=== PATIENT | female | born 1965 | race Two or more races ===

== ENCOUNTER 2016-12-19 05:47 | Inpatient (IN) | payer OTHER ==
[2016-12-18 10:25] VITALS: BMI 22.2
[~2016-12-19] VITALS: Ht 157.5 cm; Wt 52.4 kg
[2016-12-19] VITALS (13 sets, daily range): BP systolic 95–123; BP diastolic 46–62; PULSE 66–106; RESP 12–24; Ht 157.5 cm; Wt 52.4 kg
[2016-12-19] MEDS ORDERED: VASOPRESSIN 20 UNITS INJ ONE (06:58)
[2016-12-19] MEDS ORDERED: EPHEDrine SULFATE 50 MG/5 ML SYG ONE (07:00)
[2016-12-19] MEDS ORDERED: LIDOCAINE 2% (SDV) 5 ML INJ ONE (07:00)
[2016-12-19] MEDS ORDERED: ALBUMIN HUMAN 5% 500ML INJ ONE (07:00)
[2016-12-19] MEDS ORDERED: metroNIDAZOLE 500 MG/100 ML NS IVPB ONE (07:00)
[2016-12-19] MEDS ORDERED: DEXAMETHASONE 4 MG/ML 1 ML INJ ONE (07:00)
[2016-12-19] MEDS ORDERED: CEFAZOLIN 1 GM INJ ONE (07:00)
[2016-12-19] MEDS ORDERED: ONDANSETRON 4 MG INJ ONE (07:00)
[2016-12-19] MEDS ORDERED: ALBUMIN HUMAN 25% 100 ML INJ ONE (07:00)
[2016-12-19] MEDS ORDERED: BUPIVACAINE 0.5%/EPI (SDV) 10 ML INJ ONE (07:02)
[2016-12-19] MEDS ORDERED: LEVO25TA53 PO (07:21)
[2016-12-19] MEDS ORDERED: GEMF600T60 PO (07:21)
[2016-12-19] MEDS ORDERED: LEVOTHYROXINE 25 MCG TAB PO ONE (07:30)
[2016-12-19] MEDS ORDERED: MIDAZOLAM 1 MG/ML 2 ML INJ ONE (07:38)
[2016-12-19] MEDS ORDERED: PROPOFOL 20 ML ONE (07:38)
[2016-12-19] MEDS ORDERED: FENTAnyl 50 MCG/ML VIAL ONE ×2 (07:39→09:24)
[2016-12-19] MEDS ORDERED: morphine SULFATE/PF (10 MG/10 ML) INJ ONE (08:27)
[2016-12-19] MEDS ORDERED: ROCURONIUM 50 MG INJ ONE (08:27)
[2016-12-19] MEDS ORDERED: SUCCINYLCHOLINE CHLORIDE 100 MG/5 ML SYG IV ONE (08:27)
[2016-12-19] MEDS ORDERED: PHENYLephrine (100 MCG/ML) 5ML SYG ONE (08:28)
[2016-12-19] MEDS ORDERED: GLYCOPYRROLATE 0.4 MG INJ ONE (08:33)
[2016-12-19] MEDS ORDERED: NEOSTIGMINE 3 MG/3 ML SYRINGE ONE (08:33)
[2016-12-19] MEDS ORDERED: THROMBIN 5000 UNIT VIAL ONE (09:28)
[2016-12-19] MEDS ORDERED: ROPIVACAINE 0.5 % 30 ML VIAL ONE (09:49)
[2016-12-19] MEDS ORDERED: KETOROLAC 30 MG INJ IV PRN (10:00)
[2016-12-19] MEDS ORDERED: ACETAMINOPHEN 325 MG TAB PO PRN (10:00)
[2016-12-19] MEDS ORDERED: IBUPROFEN 600 MG TAB PO PRN (10:00)
[2016-12-19] MEDS ORDERED: OXYCODONE/ACETAMINOPHEN (5/325) TAB PO PRN ×2 (10:00)
[2016-12-19] MEDS: LACTATED RINGER'S 1,000 ML IV SCH ×2 (10:29→19:48)
[2016-12-19] MEDS ORDERED: METOCLOPRAMIDE 10 MG INJ IV PRN (10:30)
[2016-12-19] MEDS ORDERED: HYDROmorphONE (0.2 MG/ML) 10ML SYG IV PRN (10:30)
[2016-12-19] MEDS ORDERED: ONDANSETRON 4 MG INJ IV PRN (10:30)
--- NOTE | 2016-12-19 10:38 | PREOPHP ---
DATE OF ADMISSION: 12/19/2016 CHIEF COMPLAINT: The patient feels something coming from the vagina. HISTORY OF PRESENT ILLNESS: This is a 51-year-old female, 3, para 3 with the chief complaint of something protruding through the vagina that she can feel and actually pumping. She had been able to reduce but every time she walks now it will come out and feels and sees the uterus. Uterine prolapse from the cystocele was evident on examination. Surgical correction was discussed as well as the use of a pessary. The patient opted for final surgical correction of the problem. She denies any urinary incontinence. A total vaginal hysterectomy with anterior posterior repair was discussed with the patient in detail. The alternatives, the benefits, risks and possible complications of this procedure were described in detail. A shared decision making process was done in the office at great length. She was allowed to ask questions and all her questions were answered to her satisfaction. More common complications like hemorrhage, infection and pelvic floor injury were discussed and understood. The patient signed appropriate surgical informed consent. PAST MEDICAL HISTORY: The patient denies any medical problems including diabetes, cardiovascular disease, renal disease, liver disease, thyroid disease or neurological problems. PAST SURGICAL HISTORY: She has had cholecystectomy and bilateral tubal ligation in the past. ALLERGIES: NO KNOWN ALLERGIES. MEDICATIONS: She does not take any medications on a regular basis. FAMILY HISTORY: Noncontributory. REVIEW OF SYSTEMS: A 12-point review of systems is noncontributory. PHYSICAL EXAMINATION: GENERAL: Well-developed and nourished, in no distress. Alert and oriented x3. VITAL SIGNS: Height is 5 feet 2 inches and weight of 120 pounds with BMI of 22. Temperature 98, blood pressure 118/70, respirations of 16 per minute. Pulse is 72 per minute and regular. HEENT: Within normal limits. The pupils are ZORA. NECK: Supple. The thyroid is not palpable. There is no lymphadenopathy, depression, no masses, lumps. Neck is normal. LUNGS: Clear to percussion and auscultation. CARDIAC: The heart is normal sinus rhythm without murmur. ABDOMEN: Soft. There is no hepatosplenomegaly or hernia. PELVIC: Normal external genitalia. There is a cervical uterine prolapse and cystocele grade 3. There is also a small rectocele present. There may be an enterocele also. Bimanual exam: Uterus small, mobile. There are no adnexal masses. EXTREMITIES: Within normal limits. NEUROLOGIC: Normal. IMPRESSION: 1. Pelvic organ prolapse. 2. Cystocele grade 3. 3. Uterine prolapse. 4. Rectocele. 5. Possible enterocele. PLAN: The patient is to be admitted for a total vaginal hysterectomy, anterior and posterior repair under general anesthesia. Dictated By: Newton Bryant MD /josiah/aden /Document#: [id number] CC: MD Nargis;*EndCC* MTDD
[2016-12-19] MEDS: ONDANSETRON 4 MG INJ IV PRN ×2 (13:15→19:49)
[2016-12-19] MEDS: CEFAZOLIN 2 GM/50 ML (PMX) 50 ML IVPB SCH ×2 (14:24→22:11)
[2016-12-20 02:50] VITALS: BP_SYST 111; BP_SYST 93; BP_DIAS 45; BP_DIAS 63; RESP 17; RESP 18
[2016-12-20 05:36] LABS: ADD SCAN DIFF NO
[2016-12-20 05:46] LABS: BASOPHILS % 0.2 % (0.0-2.0); HEMATOCRIT 30.1 % (37.0-47.0); HEMOGLOBIN 9.8 g/dl (12.0-16.0); LYMPHOCYTES % 8.6 % (15.0-51.0); MEAN CORPUSCULAR HEMOGLOBIN 28.9 pg (29.0-33.0); MEAN CORPUSCULAR HGB CONC 32.6 g/dl (32.0-37.0); MEAN CORPUSCULAR VOLUME 88.8 fl (82.0-101.0); MEAN PLATELET VOLUME 9.6 fl (7.4-10.4); MONOCYTE # 0.7 10^3/ul (0.3-0.9); MONOCYTES % 5.9 % (0.0-11.0); NEUTROPHILS % 84.9 % (39.0-77.0); PLATELET COUNT 263 10^3/UL (140-415); RED BLOOD COUNT 3.39 10^6/ul (4.20-5.40); RED CELL DISTRIBUTION WIDTH 12.6 % (11.5-14.5); WHITE BLOOD COUNT 11.8 10^3/ul (4.8-10.8)
[2016-12-20] MEDS: LACTATED RINGER'S 1,000 ML IV SCH ×2 (05:48→08:03)
[2016-12-20] MEDS: CEFAZOLIN 2 GM/50 ML (PMX) 50 ML IVPB SCH (05:59)
[2016-12-20] MEDS ORDERED: LEVOTHYROXINE 25 MCG TAB PO SCH (06:00)
[2016-12-20] MEDS ORDERED: PANTOPRAZOLE 40 MG INJ IV SCH (06:00)
[2016-12-20 06:07] LABS: CALCIUM 9.4 mg/dl (8.4-10.2); CREATININE 0.57 mg/dl (0.44-1.00); POTASSIUM 3.7 mmol/L (3.5-5.1)
[2016-12-20 08:18] VITALS: BP 95/49; RESP 20
--- NOTE | 2016-12-20 09:03 | PD.PPDC ---
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
--- NOTE | 2016-12-26 10:42 | OPR ---
DATE OF OPERATION: 12/19/2016 Attending physician: Dr. Escalante PREOPERATIVE DIAGNOSIS: 1. Pelvic organ prolapse. 2. Uterine prolapse. 3. Cystocele. POSTOPERATIVE DIAGNOSIS: 1. Pelvic organ prolapse. 2. Uterine prolapse. 3. Cystocele. OPERATIVE PROCEDURE: Total vaginal hysterectomy, anterior repair. ANESTHESIA: General. SURGEON: PSYCHOLOGIST PERSONNEL: Carlos A Dumas MD ANESTHESIOLOGIST: Dr. Escalante ESTIMATED BLOOD LOSS: 100 mL COMPLICATIONS: None. SPECIMENS: The uterus was sent to pathology. OPERATIVE PROCEDURE: With the patient under general anesthesia, laying on the table in the dorsal lithotomy position, her lower abdomen and upper thighs were prepped with ChloraPrep and the perineum and vagina with Betadine and after 3 minutes she was draped in the usual sterile fashion for this procedure. She had a Ridley catheter drain in her bladder. A weighted posterior retractor was placed in the posterior vaginal wall and the cervix was grasped with a Shaneka clamp. The vaginal mucosa was infiltrated with 0.5% Marcaine with epinephrine, a total of 20 mL. Then it was opened circumferentially around the cervix. was done with scissors with the endopelvic fascia. Posterior cul-de-sac of Ovidio was entered. A weighted retractor blade was advanced. The bladder was dissected away from the anterior cervix and uterine segment. The left uterosacral ligament was identified, clamped with a Brittany clamp, cut and sutured with 0 Vicryl, may help for future reference. The same was done on the contralateral side. The cardinal ligament was then identified, clamped with a Brittany clamp, cut and sutured. The same was done on the contralateral side. The left uterine pedicle was then identified. The same was done on the contralateral side. The anterior cul-de-sac of the peritoneal was opened and the right angle retractor was advanced. The uterine pedicle was clamped on the right side with a Brittany clamp, cut and sutured twice with 0 Vicryl with good hemostasis. The same was repeated on contralateral side. Then the uterine fundus was grasped with a single tooth tenaculum and . The upper pedicle on both sides were held with Brittany clamps. The specimen was removed. Hemostasis was secured at the pedicle with 0 Vicryl sutures, 2 on each side that were held for reference. A sponge stick was advanced into the pelvis. There were no active bleeders. The ovaries were seen to be atrophic and normal. The posterior leaf of the vaginal mucosa was sutured with a running stitch of double 0 chromic catgut to secure hemostasis. Then a purse string of the same suture was utilized to close the peritoneum. Good approximation was observed. Both uterosacral ligaments were tied together. The vaginal mucosa was closed with several figure of eight sutures of 0 Vicryl except in the upper part where the anterior repair was started. This was done in an inverted T fashion, opening first the mucosa and then the endopelvic fascia from it bilaterally all the way up to the urethral vesicle angle, that was left intact. The cystocele was repaired with 2 purse strings of 0 Vicryl, obtaining a complete reduction of the cystocele. Excessive vaginal mucosa was trimmed bilaterally. The mucosa was closed with a continuous running stitch of double 0 Vicryl precaution for hemostasis, Surgiflo was left in place. No active bleeding was found. The urine continued to be clear throughout the procedure. Vagina was packed with Iodoform gauze. The patient tolerated the procedure well, was taken to the recovery room, vital signs stable. Needle and sponge and instrument count at the end of the procedure was correct twice. Dictated By: Newton Bryant MD /josiah/ /Document#: [id number] CC: Carlos A Dumas MD;*[facility]*
== END 2016-12-20 12:25 | disposition home or self-care (01) | DRG 743 ==
LOC: REC 05:47 → MS3 13:34 → PP2 15:59
PROVIDERS: ADMIT Specialist; ATTEND Specialist
PROC: 0UT97ZZ Resection of Uterus, Via Natural or Artificial Opening (ICD-10-PCS; principal; 2016-12-19 07:30)
PROC: 0UTC7ZZ Resection of Cervix, Via Natural or Artificial Opening (ICD-10-PCS; 2016-12-19 07:30)
DX: N81.89 Other female genital prolapse (principal); K46.9 Unspecified abdominal hernia without obstruction or gangrene; N81.10 Cystocele, unspecified; N81.4 Uterovaginal prolapse, unspecified; N81.6 Rectocele
CPT/HCPCS: 80048; 85025; 86850; 86900; 86901; 88305; C9113; J0690; J1100; J2250; J2274; J2370; J2405; J2710; J2765; J2795; J3010; J7120; J7999; P9045; P9047